=== PATIENT | female | born 2000 | race Native Hawaiian/Other Pacific Islander ===

== ENCOUNTER 2024-05-25 09:47 | Outpatient (CLI) | payer BC, SELFPAY | END 2024-05-25 09:48 | disposition home or self-care (01) | LOC: LKVREF 09:49 | PROVIDERS: PCP Family Medicine; Visit Provider Family Medicine | DX: Z01.818 Encounter for other preprocedural examination (principal) | CPT/HCPCS: 80048 ==

== ENCOUNTER 2024-05-30 15:57 | Outpatient (CLI) | payer BC, SELFPAY ==
[2024-05-30 18:54] LABS: Chlamydia DNA Amplified* NOT DETECTED (No Detected); GC DNA Amplified* NOT DETECTED (No Detected)
[2024-06-02 04:59] LABS: HPV Source Cervical; HPV, High Risk by TMA Not Detected
== END 2024-05-30 15:58 | disposition home or self-care (01) ==
PROVIDERS: PCP Family Medicine; Visit Provider Obstetrics & Gynecology
DX: Z11.3 Encounter for screening for infections with a predominantly sexual mode of transmission (principal); Z12.4 Encounter for screening for malignant neoplasm of cervix; Z11.51 Encounter for screening for human papillomavirus (HPV)
CPT/HCPCS: 87491; 87591; 87624; 87625; 88141; 88142

== ENCOUNTER 2024-06-05 09:25 | Outpatient (CLI) | payer BC, SELFPAY | END 2024-06-05 09:26 | disposition home or self-care (01) | LOC: NFLDREF 22:33 | PROVIDERS: PCP Family Medicine; Referring Provider Family Medicine; Visit Provider Obstetrics & Gynecology | DX: E88.819 Insulin resistance, unspecified (principal); E28.2 Polycystic ovarian syndrome; G47.33 Obstructive sleep apnea (adult) (pediatric); Z11.3 Encounter for screening for infections with a predominantly sexual mode of transmission | CPT/HCPCS: 80053; 80061; 84146; 84443; 86592; 86703; 86706; 86803; 87340 ==

== ENCOUNTER 2024-06-08 10:35 | Day surgery (SDC) | payer BC, SELFPAY ==
[2024-06-08] VITALS (16 sets, daily range): BP systolic 115–152; BP diastolic 82–107; PULSE 62–107; RESP 14–16; TEMP 36.2–37; O2SAT 94–97; BMI 30.7
[2024-06-08] MEDS: OXYMETAZOLINE 0.05% NASAL SPRAY 2 SPRAY NOSTRIL-B (10:15)
[2024-06-08] MEDS: 0.9 % SODIUM CHLORIDE 500 ML 500 ML 100 ML IV (11:15)
[2024-06-08] MEDS: SODIUM CHLORIDE 0.9 % (FLUSH) 10 ML SYRINGE IVF ×2 (11:15→15:20)
[2024-06-08] MEDS: MUPIROCIN 1 GM PACKET 1 APPLIC TOPICAL (11:45)
[2024-06-08] MEDS: AYR SALINE NASAL GEL 1 APPLIC NOSTRIL-B (11:45)
[2024-06-08] MEDS: COCAINE HCL 4 % 4 ML SOLUTION NOSTRIL-B (12:30)
[2024-06-08] MEDS: BUPIVACAINE 0.5%/EPINEPHRINE 0.9 MG (30.9 ML) INJECTION (12:45)
--- NOTE | 2024-06-08 13:10 | W.ANESCHARGE ---
Anesthesia Charges Start Date/Time Anesthesia Start Date: 06/08/24 Anesthesia Start Time: 12:15 Stop Date/Time Anesthesia Stop Date: 06/08/24 Anesthesia Stop Time: 13:11 Coding CPT Codes CPT Codes: ANESTH NOSE/SINUS SURGERY - 15224 ([id number]) P2 - PATIENT W/MILD SYST DISEASE, QK - DOCK LOADER 2-4 CNCRNT ANES PROC, QX - AUTO SERVICE REPRESENTATIVE SVC W/ MD MED DIRECTION
--- NOTE | 2024-06-08 13:14 | W.ANESCHARGE ---
Anesthesia Charges Start Date/Time Anesthesia Start Date: 06/08/24 Anesthesia Start Time: 12:15 Stop Date/Time Anesthesia Stop Date: 06/08/24 Anesthesia Stop Time: 13:11 Coding CPT Codes CPT Codes: ANESTH NOSE/SINUS SURGERY - 65304 ([id number]) P2 - PATIENT W/MILD SYST DISEASE, QX - BASEBALL SCOUT SVC W/ MD MED DIRECTION, QK - DEWER 2-4 CNCRNT ANES PROC
[2024-06-08] MEDS: fentaNYL 100 MCG/2 ML inj 50 MCG IVP ×2 (13:15→13:23)
[2024-06-08] MEDS: IBUPROFEN 100 MG/5 ML SUSP 200 MG PO (14:00)
[2024-06-08] MEDS: ACETAMINOPHEN 160 MG/5 ML CUP 320 MG PO (14:00)
--- NOTE | 2024-06-08 14:29 | W.PM.ENTPROC ---
Procedure Note Date of procedure: 06/08/24 Procedure: Preoperative diagnosis chronic tonsillitis, adenotonsillar hypertrophy, upper airway obstruction, nasal obstruction, deviated septum, inferior turbinate hypertrophy Postoperative diagnosis same Procedure adenotonsillectomy, nasal septoplasty, submucous partial resection inferior turbinate right Under general endotracheal anesthesia the patient was prepped and draped in usual fashion. The nose was decongested and injected. The McIvor mouth gag was inserted the tongue retracted forward. No submucous cleft was noted on inspection or palpation. The right and left tonsils were removed with a combination of needlepoint cautery, bipolar cautery and suction cautery. Meticulous hemostasis was achieved. The adenoid pad was visualized with a laryngeal mirror and was moderately enlarged. This was removed with suction cautery and removed with suction cautery. After regarding gloving attention was turned to the nose. A right hemitransfixion incision was made left anterior posterior tunnels were created. Right anterior and posterior tunnels were created. A vertical incision was made through the cartilage in the posterior deflected portions of septal bone resected trimmed and returned to intraseptal space. Anteriorly the septum was is repositioned to midline. The hemitransfixion was closed with 2 4-0 chromic sutures. Silastic stents were secured with 3-0 nylon A stab incision was made in the anterior of the right inferior turbinate a tunnel created with a Adri dissector. A conservative anterior submucous resection was performed. The Coblation was used for hemostasis and to cauterize intramurally conservatively along the inferior 10%. Merocel packing was placed in the middle meatus on each side. The patient was extubated in the operating room taken recovery in satisfactory condition. Blood loss was less than 10 mL. Surgeon: Ronald Brown MD
[2024-06-08] MEDS: OXYCODONE 1 MG/ML ORAL SOLN 5 MG PO (15:20)
[2024-06-08] MEDS: ONDANSETRON 2 MG/ML inj 4 MG IVP (15:20)
== END 2024-06-08 15:30 | disposition home or self-care (01) ==
LOC: OR 10:37
PROVIDERS: PCP Family Medicine; Visit Provider Otolaryngology
PROC: (CPT 42821; principal; 2024-06-08 12:00)
DX: J35.01 Chronic tonsillitis (principal); J35.3 Hypertrophy of tonsils with hypertrophy of adenoids; J34.2 Deviated nasal septum; J34.3 Hypertrophy of nasal turbinates; J34.89 Other specified disorders of nose and nasal sinuses
CPT/HCPCS: 42821; 30520; 30140; 00160; 81025; 88304; A9270; J0330; J1100; J2405; J2704; J3010; J7030

== ENCOUNTER 2024-11-27 08:54 | Outpatient (CLI) | payer BC, SELFPAY | END 2024-11-27 08:55 | disposition home or self-care (01) | PROVIDERS: PCP Family Medicine; Visit Provider Obstetrics & Gynecology | DX: N91.2 Amenorrhea, unspecified (principal) | CPT/HCPCS: 84450; 84460 ==